=== PATIENT | male | born 1955 | race African-American/Black ===

== ENCOUNTER 2016-06-06 22:29 | Emergency (ER) | payer BC ==
[~2016-06-06 22:29] MED LIST: ATRONASAL6 NAS; BEANO PO; BENADRYL 50 MG50 MG PO; DIL2TAB PO; ENSURE; LIDOCAINE HCL 4% PO; MAGNESIUM CITRATE PO; MIRALAXPKT PO; MSCONT60 PO; NORCO1 TA1 PO; OXYIR5 MG PO; PERCOCET 10/3251 TAB PO; PERCOCET1 TA4 PO; PR25 PO; PRILO PO; PROVHFA INH; ROXICODONE30 MG PO; SENTAB PO; VENTOLIN HFA INH; ZOFRAN8 PO
[2016-11-06] MEDS ORDERED: FLONASE NAS (08:06)
== END 2016-06-06 22:45 | disposition home or self-care (01) ==
LOC: ER 22:29
PROC: 0D20XUZ Change Feeding Device in Upper Intestinal Tract, External Approach (ICD-10-PCS; principal; 2016-06-06)
DX: K94.23 Gastrostomy malfunction (principal); J44.9 Chronic obstructive pulmonary disease, unspecified; Z85.01 Personal history of malignant neoplasm of esophagus; Z79.899 Other long term (current) drug therapy
CPT/HCPCS: 49450; 49465; 99152; 99153; 99284; C1725; C1769; J1170; J2250; J2405; J3010; Q9967